=== PATIENT | male | born 1970 | race Caucasian/White ===

== ENCOUNTER 2022-12-05 11:20 | Observation (INO) ==
[2022-12-05] MEDS ORDERED: ACETAMINOPHEN 325 MG TAB PO PRN (11:38)
[2022-12-05] MEDS ORDERED: POLYETHYLENE (MIRALAX) 17 GM PACK PO PRN (11:38)
[2022-12-05] MEDS ORDERED: ALUMINUM/MAGNESIUM SUSP 30 ML UDC PO PRN (11:38)
[2022-12-05] MEDS ORDERED: MAGNESIUM HYDROXIDE SUSP 30 ML UDC PO PRN (11:38)
[2022-12-05] MEDS ORDERED: ONDANSETRON INJ 2 MG/ML 2 ML VIAL IV PRN (11:38)
--- NOTE | 2022-12-05 17:47 | History & Physical Report ---
Date of Service December 05, 2022 Assessment & Plan (1) Abdominal pain: (2) Biliary colic: (3) Hx of gastritis: Plan: This is a 52-year-old male who has significant past medical history of GERD, CKD stage III, gout and adjustment disorder who presents to [facility] as a direct admission from [facility] due to epigastric abdominal pain that started around midnight. Pt is admitted as a direct transfer from [facility] for Abd pain. Imaging at OSH (CT a/P and GB US) revealed distended GB with cholelithiasis, but no evidence for acute cholecystitis. He remained afebrile, lab work reviewed from outside facility which revealed normal LFTs and no leukocytosis. Due to persistent pain it was recommended to transfer patient due to facility not having surgeon in house for general surgery evaluation. Upon arrival currently pain is much improved after several doses of Dilaudid at outside facility. Pain currently 1 out of 10. Symptoms consistent with epigastric abdominal pain radiating around right side of abdomen to back with associated nausea and vomiting. Symptoms started abruptly. Symptoms not consistent with biliary colic. Abdominal pain Biliary colic Patient is admitted to medical Clear liquid diet today, n.p.o. after midnight Consult general surgery Images from outside facility to be uploaded in a.m. of 12/06 As needed antiemetics and pain medications Continue daily PPI as scheduled LR at 80 cc/h At this point I do not feel antibiotics are warranted repeat CBC, CMP, Lipase, Mag in a.m. Hx of Gastritis endoscopy in Aug with [facility] revealed gastritis, esophageal ulcer on PPI CKD 3a cr at OSH 1.35 monitor renal fxn avoid nephro toxic agents DVT prophylaxis: Encourage ambulation, will hold on chemical prophylaxis until valuated by general surgery Dispo: Admit to medical, determine if patient to require cholecystectomy inpatient or possibly outpatient then likely discharged home Full code PCP: Dr. Kelly Patient was seen and examined in collaboration with Dr. Stout, please see addendum A total of 80 minutes were spent with greater than 50% of that time face to face with the patient, personally reviewing all current laboratories, imaging studies, past medication reconciliation, outpatient chart review, and discussion with specialists to collaborate care for the patient with attending. Please see attending documentation for corrections and/or additions. Admission and Anticipated Discharge Date Admission Date: December 05, 2022 History of Present Illness Chief Complaint: Epigastric abd pain that started at midnight. Primary Care Provider: Dontrell Kelly MD This is a 52-year-old male who has significant past medical history of GERD, CKD stage III, gout and adjustment disorder who presents to [facility] as a direct admission from [facility] due to epigastric abdominal pain that started around midnight. Of significance he does follow with [facility] gastroenterology and underwent upper GI September 02, 2022 which revealed esophageal ulceration with reactive change, and mild chronic gastritis. He was placed on pantoprazole once daily and has been compliant with this. Patient states at midnight he developed sudden onset acute epigastric pain that radiated around the right side of his abdomen to his back. Pain was constant. It was made worse with lying down and only improved with pain medication. He states he had a similar episode exactly 1 week ago today. He denies any alcohol or NSAID use. He also denies any drug use. He does use chewing tobacco. The only thing he ate yesterday was a vegan tofu dinner made by his nephew. He is unsure what he ate approximately 1 week ago that may have brought on the symptoms. He otherwise has never had anything like this before. It was also associated with nausea and vomiting. The last episode of vomiting was around 6 AM. He denies any hematemesis, fever, chills, sweats, lightheadedness, dizziness, chest pain, shortness of breath, melena, hematochezia or diarrhea. He does complain of sore throat from vomiting. Currently pain is 1 out of 10. He was initially seen and evaluated at [facility]. He underwent a CT abdomen pelvis as well as ultrasound of gallbladder. This revealed a distended gallbladder with gallstones. Ultrasound revealed cholelithiasis without definite evidence of acute cholecystitis. EKG was reviewed from outside facility which revealed sinus rhythm, right bundle branch block noted, QTC 410 ms labs from outside facility were reviewed and LFTs were completely unremarkable. Creatinine was slightly elevated at 1.35. His troponin and lipase are unremarkable. CBC was also unremarkable. Allergies Allergy/AdvReac Type Severity Reaction Status Date / Time No Known Allergies Allergy Verified 10/20/21 09:57 Home Medications Medication Instructions Recorded Confirmed Type pantoprazole 40 mg tablet,delayed 40 mg PO DAILY 12/05/22 12/05/22 History release Past Med/Surg History Medical History Adjustment disorder CKD (chronic kidney disease) Stage III Gout Migraine Nausea and vomiting after administration of anesthetic agent Obesity Surgical History History of ankle fracture Left bimalleolar ankle fracture repair History of colonoscopy History of surgery thyroid cyst removed Hx of umbilical hernia repair Family History Other Prostate cancer Social History Smoking Status: Former smoker Tobacco Type: Smokeless Tobacco (Dip or Chew) Cigarettes Per Day: 1/2 can of chewing tobacco a day; Hx Alcohol Use: No Hx Substance Use: No Preferred 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: 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 Beliefs That Will Affect Care: None marital status: Current Living Situation: Spouse Feels Safe at Home: Yes Assistive Devices: Denture - Upper, Denture - Lower and Glasses Review of Systems Review of Systems: All systems reviewed & are unremarkable except as noted in HPI & below Physical Exam Physical Exam: Constitutional: WD/WN, male, vitals as above, NAD, sitting up in bed, pleasant, conversing easily Head: Normocephalic, Atraumatic Eyes: PERRL, conjunctivae normal, anicteric sclerae ENMT: external ear and nose normal, oropharynx normal Neck: trachea midline, no thyromegaly normal visual inspection Respiratory: normal respiratory effort, lungs clear to auscultation, no wheeze, rales, rhonchi. Normal insp/exp effort, no accessory muscle use Cardiovascular: RRR, no murmur, no edema Vessels: no JVD or carotid bruit Chest: normal inspection of chest Abdomen: Protuberant abdomen, normal bowel sounds, soft, nontender, no hepatosplenomegaly Musculoskeletal: no cyanosis or clubbing, extremities motor strength 5/5 Skin: no rashes, warm and dry normal turgor Neurologic: PERRL, EOMI, accommodation nl, no face palsy, no dysarthria CN's II-XI intact bilaterally and moves all extremities Psychiatric: A+Ox3, euthymic affect Lymphatic: no cervical or axillary lymphadenopathy : deferred Results & Data Results & Data ([facility]) Laboratory Results Lab work was reviewed from outside facility CBC unremarkable, CMP completely unremarkable except mildly elevated creatinine 1.35. Diagnostic Findings CT abdomen pelvis and ultrasound readings were reviewed This revealed hepatic steatosis, distended gallbladder but no gallbladder wall thickening or signs for concern of acute cholecystitis but positive cholelithiasis ECG Additional Comments: OSH ECG reviewed, NSR, RBBB, QTC 410ms Code Status & VTE Plan Code Status FULL CODE VTE Prophylaxis Plan VTE Prophylaxis will be ordered: Yes Supervising Physician Co-Signing Physician Notes I have seen and examined the patient and have discussed the case with the provider above. I agree with the assessment and plan as stated with the following exceptions. Patient is a 52-year-old man who presents with a second round of epigastric abdominal pain in the last week. This pain began acutely at midnight last night and he vomited excessively with significant pain until 10 AM this morning. It is sharp and radiates around to his back. There is nothing that is clearly triggering it and nothing that has alleviated it. He presented to [facility] where he received supportive care with pain meds and antiemetics. He denies any abnormal bowel movements. Work-up reveals a distended gallbladder with gallstones. This is a presumed biliary colic picture. Outpatient diagnostics as above. On physical exam he is morbidly obese and appears mildly uncomfortable. He is mentating clearly and skin is warm and dry. Cardiac exam reveals S1/S2 heard with regular rate and rhythm. Lungs are clear to auscultation bilaterally. There is no evidence of CVA tenderness. Abdomen is protuberant and nontender aside from the epigastric region and mildly in the left upper quadrant. Agree with plan to continue supportive care and assess in a.m. for consideration of laparoscopic cholecystectomy. This will be up to the surgeon who takes over tomorrow. We will keep him n.p.o. after midnight with this is a tentative plan. Other medical issues include obstructive sleep apnea and will place him on CPAP overnight. 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 He has no prior history of issues with anesthesia and no history of DVT or PE. Recommend proceeding to surgery once that is decided and continue with standard DVT prophylaxis. Girish, DO
[2022-12-05] MEDS ORDERED: SODIUM CHLORIDE 0.65% NA SOLN 45 ML (OCEAN) ONE (17:58)
[2022-12-05] MEDS ORDERED: oxyCODONE HCL IR 5 MG TAB (IMMEDIATE RELEASE) PO PRN (18:02)
--- NOTE | 2022-12-05 18:14 | Surgery Consultation ---
Date of Consultation December 05, 2022 Assessment & Plan (1) Biliary colic: Gallstones on outside imaging. Discussed laparoscopic cholecystectomy with risks of bleeding, infection, conversion to open, postop bile leak or retained stone, injury to common duct. Explained that Dr. Dacosta will take over tomorrow so timing of surgery will be deferred to him. Currently, no signs of acute cholecystitis on imaging but is requiring IV pain medications. History of Present Illness Reason for Consultation: gallstones Requesting Physician: Heidi GONZALEZ Attending Physician: Deirdre Stout DO History of Present Illness 52 yr old man direct admission from [facility] for biliary colic due to gallstones. He has been dealing with GI issues for a number of years - diverticulitis in the past, more recently reflux disease with food sticking mid chest. Started yesterday with severe 11/10 epigastric pain radiating over to right side and around back. No exacerbating factors. Now pain is a 1 /10. Did have nausea and vomiting with the pain. Does not recall eating anything unusual for him. Pain improved after dilaudid. PMH notable for GERD, CKD stage III, gout and adjustment disorder. Allergies Allergy/AdvReac Type Severity Reaction Status Date / Time No Known Allergies Allergy Verified 10/20/21 09:57 Home Medications Medication Instructions Recorded Confirmed Type pantoprazole 40 mg tablet,delayed 40 mg PO DAILY 12/05/22 12/05/22 History release Patient History Medical History Adjustment disorder CKD (chronic kidney disease) Stage III Gout Migraine Nausea and vomiting after administration of anesthetic agent Obesity Surgical History History of ankle fracture Left bimalleolar ankle fracture repair History of colonoscopy History of surgery thyroid cyst removed Hx of umbilical hernia repair Family History Other Prostate cancer Social History Smoking Status: Former smoker Tobacco Type: Smokeless Tobacco (Dip or Chew) Cigarettes Per Day: 1/2 can of chewing tobacco a day; Hx Alcohol Use: No Hx Substance Use: No 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 Beliefs That Will Affect Care: None marital status: Current Living Situation: Family Feels Safe at Home: Yes Assistive Devices: Denture - Upper, Denture - Lower and Glasses Review of Systems Review of Systems: All systems reviewed & are unremarkable except as noted in HPI & below Ear, Nose, Mouth, Throat: + hearing loss Physical Exam Constitutional: WD/WN, vitals as above Eyes: PERRL, conjunctivae normal, anicteric sclerae Respiratory: normal respiratory effort, lungs clear to auscultation Cardiovascular: RRR, no murmur, no edema Gastrointestinal (Abdomen): Inspection/Auscultation: abdomen normal to inspection and normal bowel sounds; abdomen not distended Percussion/Palpation: abdomen soft; abdomen nontender and no guarding Musculoskeletal: Extremities: extremities normal to inspection Neurologic: awake; no focal motor deficits Psychiatric: A+Ox3, euthymic affect Results & Data ([facility]) Laboratory Results Lab work was reviewed from outside facility CBC unremarkable, CMP completely unremarkable except mildly elevated creatinine 1.35. Diagnostic Findings CT abdomen pelvis and ultrasound readings were reviewed This revealed hepatic steatosis, distended gallbladder but no gallbladder wall thickening or signs for concern of acute cholecystitis but positive cho lelithiasis
[2022-12-05] MEDS: LACTATED RINGER'S 1,000 ML IV SCH (18:32)
[2022-12-05] MEDS: MoRPHine SULFATE 4 MG/ML 1 ML CARP\\VIAL IV PRN (21:27)
[2022-12-06] MEDS: LACTATED RINGER'S 1,000 ML IV SCH ×2 (05:51→21:24)
[2022-12-06 07:04] LABS: Basophils # (auto) 0.04 K/uL (0-0.2); Basophils % (auto) 0.6 %; Eosinophils # (auto) 0.28 K/uL (0-0.50); Eosinophils % (auto) 4.3 %; Hemoglobin 14.9 g/dl (14.0-18.0); Immature Granulocytes # (auto) 0.01 K/uL (0.01-0.20); Immature Granulocytes % (auto) 0.2 %; Lymphocytes # (auto) 1.04 K/uL (1.2-3.4); Lymphocytes % (auto) 15.8 %; Mean Corpuscular Hgb Conc 34.7 g/dL (32.0-36.0); Mean Corpuscular Volume 86.5 fL (80.0-100.0); Mean Platelet Volume 12.6 fL (9.4-12.4); Monocytes % (auto) 10.6 %; Neutrophils # (auto) 4.51 K/uL (1.40-6.50); Neutrophils % (auto) 68.5 %; Platelet Count 122 K/uL (130-400); RDW Coefficient of Variation 13.1 % (11.5-14.5); Red Blood Count 4.97 M/uL (4.70-6.10); White Blood Count 6.58 K/ul (4.8-10.8)
[2022-12-06] MEDS: PANTOprazole 40 MG TAB PO SCH (07:12)
[2022-12-06 07:52] LABS: Albumin Level 3.3 gm/dl (3.4-5.0); Calcium 8.2 mg/dl (8.5-10.1); Magnesium 1.8 mg/dl (1.7-2.4); Potassium 3.9 mmol/L (3.5-5.1)
[2022-12-06 07:58] LABS: Albumin Globulin Ratio 1.6 (0.9-2); BUN Creatinine Ratio 9.5 (10-20); Creatinine Clr Calc Pharmacy 83.3 ml/min; Est GFR (African American) 74.5 ml/min; Est GFR (Non-African American) 64.2 ml/min; Globulin 2.1 gm/dl (2.5-4.0); Total Protein 5.4 gm/dl (6.0-8.3)
--- NOTE | 2022-12-06 10:30 | Surgery Progress Note ---
Date of Service December 06, 2022 Assessment & Plan (1) Biliary colic: Plan: Gallstones on outside imaging. Discussed laparoscopic cholecystectomy with risks of bleeding, infection, conversion to open, postop bile leak or retained stone, injury to common duct. Explained that Dr. Dacosta will take over tomorrow so timing of surgery will be deferred to him. Currently, no signs of acute cholecystitis on imaging but is requiring IV pain medications. 12/06/2022 10:[address] Dacosta base on pt's H/P, labs and imaging study, I recommend to do laparoscopic cholecystectomy, possible open or cholangiogram, D/W benefits, risks and alternatives of the surgery, the risks - infection, bleeding, injury other organs, incisional hernia, may need ERCP, pt understood, he agreed with surgery, he signed informed consent, I answered all questions, continue treatment, Admission and Anticipated Discharge Date Admission Date: December 05, 2022 Supervising Physician Co-Signing Physician Notes I have seen and examined the patient and have discussed the case with the provider above. I agree with the assessment and plan as stated with the following exceptions. Patient is a 52-year-old man who presents with a second round of epigastric abdominal pain in the last week. This pain began acutely at midnight last night and he vomited excessively with significant pain until 10 AM this morning. It is sharp and radiates around to his back. There is nothing that is clearly triggering it and nothing that has alleviated it. He presented to [facility] where he received supportive care with pain meds and antiemetics. He denies any abnormal bowel movements. Work-up reveals a distended gallbladder with gallstones. This is a presumed biliary colic picture. Outpatient diagnostics as above. On physical exam he is morbidly obese and appears mildly uncomfortable. He is mentating clearly and skin is warm and dry. Cardiac exam reveals S1/S2 heard with regular rate and rhythm. Lungs are clear to auscultation bilaterally. There is no evidence of CVA tenderness. Abdomen is protuberant and nontender aside from the epigastric region and mildly in the left upper quadrant. Agree with plan to continue supportive care and assess in a.m. for consideration of laparoscopic cholecystectomy. This will be up to the surgeon who takes over tomorrow. We will keep him n.p.o. after midnight with this is a tentative plan. Other medical issues include obstructive sleep apnea and will place him on CPAP overnight. 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 He has no prior history of issues with anesthesia and no history of DVT or PE. Recommend proceeding to surgery once that is decided and continue with standard DVT prophylaxis. [place], DO Subjective F/U biliary colic and gallstone, pt is doing better, less abdominal pain, no nausea, no vomiting, no fever, I reviewed pt's H/P, labs with pt. Review of Systems Ear, Nose, Mouth, Throat: + hearing loss Physical Exam Constitutional: WD/WN, vitals as above Eyes: PERRL, conjunctivae normal, anicteric sclerae Neck: trachea midline, no thyromegaly Respiratory: normal respiratory effort, lungs clear to auscultation Cardiovascular: RRR, no murmur, no edema Gastrointestinal (Abdomen): mild tenderness at RUQ, no rebound pain , no distend, BS +, Musculoskeletal: no cyanosis or clubbing, extremities motor strength 5/5 Neurologic: patellar DTR's 2+ bilat, sensation intact Psychiatric: A+Ox3, euthymic affect Results & Data ([facility]) Vital Signs (Past 12 Hours) Vital Signs Temp Pulse Resp BP Pulse Ox O2 Del Method O2 Flow Rate 12/06/22 07:38 36.9 C 81 18 125/74 95 Room Air 12/05/22 22:50 36.5 C 70 20 127/80 96 Nasal Cannula 2 Laboratory Results Abnormal lab results 12/06/22 12/06/22 Range/Units 06:29 06:29 Plt Count 122 L (130-400) K/uL MPV 12.6 H (9.4-12.4) fL Lymph # (Auto) 1.04 L (1.2-3.4) K/uL Edwards # (Auto) 0.70 H (0.11-0.59) K/uL BUN/Creatinine Ratio 9.5 L (10-20) Calcium 8.2 L (8.5-10.1) mg/dl Total Protein 5.4 L (6.0-8.3) gm/dl Albumin 3.3 L (3.4-5.0) gm/dl Globulin 2.1 L (2.5-4.0) gm/dl Diagnostic Findings Gallstones on outside imaging.
[2022-12-06] MEDS: ceFAZolin 1000MG 1,000 MG/7.5 ML SYR IV SCH (11:33)
--- NOTE | 2022-12-06 14:38 | Hospitalist Progress Note ---
Date of Service December 06, 2022 Assessment & Plan (1) Abdominal pain: (2) Biliary colic: (3) Hx of gastritis: Plan: Patient is a 52 yr male with H/O GERD, CKD stage III, gout and adjustment disorder who presents to [facility] as a direct admission from [facility] due to epigastric abdominal pain that started around midnight. Biliary colic Outpatient CT ABD/Pel and GB US revealed distended GB with cholelithiasis, but no evidence for acute cholecystitis. NPO for now Appreciate surgery Input Planned for Laparoscopic Cholecystectomy today pain control Continue IV fluids H/O Gastritis Last Endoscopy in Aug with [facility] revealed gastritis, esophageal ulcer Continue PPI CKD III Cr 1.2 today monitor renal function Avoid nephro toxic agents DVT Px: SCDs for now Encourage ambulation Code Status: Full code Admission and Anticipated Discharge Date Admission Date: December 05, 2022 Subjective Patient is seen and examined at bedside Abdominal pain resolved Denies any chest pain, shortness of breath, dizziness, nausea No other complaints Planned for cholecystectomy today Review of Systems Review of Systems: All systems reviewed & are unremarkable except as noted in Subjective Physical Exam Physical Exam: Physical Exam: Vitals signs as noted above General Appearance:Obese, no apparent distress Head: normocephalic, Atraumatic Eyes: normal inspection, EOMI Neck: supple, Trachea midline Respiratory/Chest: Normal breath sounds, CTA, No accessory muscle use Cardiovascular: S1, S2, No murmur Abdomen/GI:Soft, Non tender, Bowel sounds present Extremities/Musculoskeletal:normal inspection, no edema Neurologic/Psych:AAOX3, grossly no focal neurological deficits Skin: normal color, warm Results & Data Results & Data ([facility]) Vital Signs (Past 12 Hours) Vital Signs Temp Pulse Resp BP Pulse Ox O2 Del Method 12/06/22 07:38 36.9 C 81 18 125/74 95 Room Air Laboratory Results Short CBC 12/06/22 Range/Units 06:29 WBC 6.58 (4.8-10.8) K/ul Hgb 14.9 (14.0-18.0) g/dl Hct 43.0 (42.0-52.0) % Plt Count 122 L (130-400) K/uL BMP 12/06/22 06:29 Sodium 136 Potassium 3.9 Chloride 104 Carbon Dioxide 28 BUN 12 Creatinine 1.26 Glucose 95 Calcium 8.2 L Liver Function 12/06/22 Range/Units 06:29 Total Bilirubin 1.0 (0.2-1.0) mg/dl AST 16 (13-39) U/L ALT 18 (7-52) U/L Alkaline Phosphatase 68 (34-104) U/L Albumin 3.3 L (3.4-5.0) gm/dl
[2022-12-06] MEDS ORDERED: fentaNYL citrate PF 100 MCG/2 ML VIAL ONE ×2 (16:57→19:18)
[2022-12-06] MEDS ORDERED: ONDANSETRON INJ 2 MG/ML 2 ML VIAL ONE ×2 (16:57→18:29)
[2022-12-06] MEDS ORDERED: MIDAZOLAM HCL 1 MG/ML 2ML VIAL ONE (16:57)
[2022-12-06] MEDS ORDERED: LARYING-O-JET KIT (LTA) ONE (16:57)
[2022-12-06] MEDS ORDERED: ROCURONIUM BROMIDE 10 MG/ML 5 ML VIAL IV ONE (16:57)
[2022-12-06] MEDS ORDERED: PROPOFOL IV EMULSION 10 MG/ML 20 ML VIAL IV ONE (16:57)
[2022-12-06] MEDS ORDERED: LIDOCAINE 2% MPF LOCAL 5 ML VIAL INFIL ONE (16:57)
[2022-12-06] MEDS ORDERED: NEOSTIGMINE METHYLSULFATE 1 MG/ML 10ML VIAL ONE ×3 (16:57→20:05)
[2022-12-06] MEDS ORDERED: DEXAMETHASONE SOD INJ 4 MG/ML VIAL ONE (16:57)
[2022-12-06] MEDS ORDERED: GLYCOPYRROLATE 0.2 MG/ML VIAL ONE ×3 (16:57→20:05)
--- NOTE | 2022-12-06 17:06 | History & Physical Bridge Note ---
Date of Service December 06, 2022 History & Physical Bridge Note I have examined the patient, reviewed the History & Physical and in the interval since the performance of the History & Physical I have noted the following changes of clinical significance: no changes noted Supervising Physician Co-Signing Physician Notes I have seen and examined the patient and have discussed the case with the provider above. I agree with the assessment and plan as stated with the following exceptions. Patient is a 52-year-old man who presents with a second round of epigastric abdominal pain in the last week. This pain began acutely at midnight last night and he vomited excessively with significant pain until 10 AM this morning. It is sharp and radiates around to his back. There is nothing that is clearly triggering it and nothing that has alleviated it. He presented to [facility] where he received supportive care with pain meds and antiemetics. He denies any abnormal bowel movements. Work-up reveals a distended gallbladder with gallstones. This is a presumed biliary colic picture. Outpatient diagnostics as above. On physical exam he is morbidly obese and appears mildly uncomfortable. He is mentating clearly and skin is warm and dry. Cardiac exam reveals S1/S2 heard with regular rate and rhythm. Lungs are clear to auscultation bilaterally. There is no evidence of CVA tenderness. Abdomen is protuberant and nontender aside from the epigastric region and mildly in the left upper quadrant. Agree with plan to continue supportive care and assess in a.m. for consideration of laparoscopic cholecystectomy. This will be up to the surgeon who takes over tomorrow. We will keep him n.p.o. after midnight with this is a tentative plan. Other medical issues include obstructive sleep apnea and will place him on CPAP overnight. 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 He has no prior history of issues with anesthesia and no history of DVT or PE. Recommend proceeding to surgery once that is decided and continue with standard DVT prophylaxis. DO Girish
[2022-12-06] MEDS ORDERED: BUPIVACAINE 0.5 % 5 MG/1 ML MPF 30ML VIAL ONE (17:21)
[2022-12-06] MEDS ORDERED: BACITRACIN OINT 15 GM TUBE ONE (17:21)
[2022-12-06] MEDS ORDERED: LIDOCAINE 1% LOCAL 20 ML VIAL ONE (17:21)
[2022-12-06] MEDS ORDERED: ONDANSETRON INJ 2 MG/ML 2 ML VIAL IV PRN (17:24)
[2022-12-06] MEDS ORDERED: HYDROmorphone INJ 2 MG/ML SYR/VIAL IV PRN (17:24)
[2022-12-06] MEDS ORDERED: ePHEDrine sulfate 50 MG/ML AMP IV PRN (17:24)
[2022-12-06] MEDS ORDERED: ATROPINE SULFATE 0.1 MG/ML 10ML SYR IV PRN (17:24)
--- NOTE | 2022-12-06 17:25 | Anesthesiology Consultation ---
Date of Service December 06, 2022 Assessment & Plan ASA ASA2 Proposed Anesthesia Anesthesia Type: General Risk / Benefits Reviewed With: PT / POA / Parent / Guardian, Accepts Plan and Informed Consent Obtained History Surgery Operation Date: 12/06/22 13:10 Proposed Procedures p Laparoscopic Cholecystectomy - Nuzhat Dacosta MD Height/Weight Height: 5 ft 9 in Weight: 113.5 kg Allergies Allergy/AdvReac Type Severity Reaction Status Date / Time No Known Allergies Allergy Verified 10/20/21 09:57 Medications Home Medications Medication Instructions Recorded Confirmed Last Taken pantoprazole 40 mg tablet,delayed 40 mg PO DAILY 12/05/22 12/05/22 Unknown release Active Medications Generic Name Dose Route Start Last Admin Trade Name Freq PRN Reason Stop Dose Admin Lactated Ringer's 1,000 mls @ 80 mls/hr 12/05/22 18:15 12/06/22 16:53 Lr IV 01/04/23 18:14 0 mls/hr .[id number] SHANELL Infusion Cefazolin Sodium 1,000 mg in 7.5 mls @ 2.5 mls/min 12/06/22 10:30 12/06/22 11:33 Ancef 1000mg IV 12/16/22 10:29 2.5 mls/min Q8H SHANELL Administration Morphine Sulfate 4 mg 12/05/22 18:02 12/05/22 21:27 Morphine Sulfate 4 Mg/Ml 1 Ml Carp\Vial IV 12/19/22 18:01 4 mg Q4H PRN Administration Pain (6,7,8,9,10) Pantoprazole Sodium 40 mg 12/06/22 09:00 12/06/22 07:12 Pantoprazole 40 Mg Tab PO 01/05/23 08:59 Not Given DAILY SHANELL NPO Date Last Intake of Fluids: 12/05/22 Time Last Intake of Fluids: 23:30 Date Last Intake of Solids: 12/06/22 Time Last Intake of Solids: 23:30 Past Medical History Medical History Adjustment disorder CKD (chronic kidney disease) Stage III Gout Migraine Nausea and vomiting after administration of anesthetic agent Obesity Exercise / Class Metabolic Activity II 4-5 Yardwork/Stairs/Walk up hill Past Family History Family History Other Prostate cancer Past Surgical History Surgical History History of ankle fracture Left bimalleolar ankle fracture repair History of colonoscopy History of surgery thyroid cyst removed Hx of umbilical hernia repair Past Anesthesia History No Hx of Anesthesia Complications and No Family Hx of Anesthesia Complications History of PONV No Hx of PONV and No Hx of Motion Sickness Social History Smoking Status: Former smoker tobacco type: cigarettes Smoking cigarettes per day: 1/2 can of chewing tobacco a day Hx Alcohol Use: No Hx Substance Use: No substance use type: does not use Review of Systems denies fever/cough/ colds/ chest pain/ SOB/ JON denies JON Physical Exam Vital Signs Last Vital Signs Temp 37.4 C 12/06/22 17:04 Pulse 70 12/06/22 17:04 Resp 18 12/06/22 17:04 BP 133/79 12/06/22 17:04 Pulse Ox 95 12/06/22 17:04 O2 Del Method 12/06/22 17:04 O2 Flow Rate 2 12/05/22 22:50 ENMT Mouth: + edentulous; no TMJ abnormality and no dentition abnormality Thyromental Distance: > or= 3.5 Finger Breadths Mallampati Class: II Neck neck extension not limited Respiratory normal respiratory effort; no respiratory distress Auscultation: lungs clear to auscultation bilaterally Cardiovascular Rate/Rhythm: regular rate and regular rhythm Neurologic moves all extremities Psychiatric Orientation: alert and oriented x 3 Testing Laboratory Results 12/06/22 06:29 12/06/22 06:29
[2022-12-06] MEDS ORDERED: ceFAZolin 330 MG/ML 1 GM VIAL ONE (18:13)
[2022-12-06] MEDS ORDERED: SODIUM CHLORIDE 0.9% PF INJ 10 ML VIAL ONE (18:13)
[2022-12-06] MEDS ORDERED: ceFAZolin 2000MG 2,000 MG/15 ML SYR IV ONE (18:19)
[2022-12-06] MEDS ORDERED: SUGAMMADEX SODIUM 200 MG/2 ML VIAL IV ONE (19:11)
--- NOTE | 2022-12-06 20:13 | Post Operative Brief Note ---
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
[2022-12-06] MEDS: fentaNYL citrate PF 100 MCG/2 ML VIAL IV PRN ×4 (20:30→20:45)
--- NOTE | 2022-12-06 20:56 | Anesthesiology Progress Note ---
Date of Service December 06, 2022 Anesthesia Post Procedure Vital Signs Vital Signs: Temp Pulse Pulse Pulse Resp BP Pulse Ox 12/06/22 20:50 78 15 123/84 94 12/06/22 20:40 90 16 137/90 93 12/06/22 20:30 95 H 17 142/85 H 90 12/06/22 20:24 37.3 C 96 H 21 130/88 96 12/06/22 17:04 37.4 C 70 18 133/79 95 12/06/22 16:14 36.8 C 69 18 118/77 92 12/06/22 07:38 36.9 C 81 18 125/74 95 12/05/22 22:50 36.5 C 70 20 127/80 96 12/05/22 20:58 85 24 94 O2 Del Method O2 Flow Rate 12/06/22 20:50 Nasal Cannula 4 12/06/22 20:40 Nasal Cannula 4 12/06/22 20:30 Nasal Cannula 4 12/06/22 20:24 Oxymask 6 12/06/22 17:04 Room Air 12/06/22 16:14 Room Air 12/06/22 07:38 Room Air 12/05/22 22:50 Nasal Cannula 2 12/05/22 20:58 2 Pain Intensity Abdomen: Pain Intensity: 5 Transfer of Care Handoff Completed per policy Notes Mental Status: alert / awake / arousable and participated in evaluation Patient Amnestic to Procedure: Yes Nausea / Vomiting: adequately controlled Pain: adequately controlled Airway Patency, RR, SpO2: stable & adequate BP & HR: stable & adequate Hydration State: stable & adequate Anesthetic Complications: no major complications apparent and Pt Satisfied with anesthetic care
[2022-12-06] MEDS: MoRPHine SULFATE 4 MG/ML 1 ML CARP\\VIAL IV PRN (21:21)
[2022-12-07] MEDS: LACTATED RINGER'S 1,000 ML IV SCH (05:17)
[2022-12-07] MEDS: MoRPHine SULFATE 4 MG/ML 1 ML CARP\\VIAL IV PRN (05:18)
[2022-12-07] MEDS: ceFAZolin 1000MG 1,000 MG/7.5 ML SYR IV SCH ×2 (07:02→07:03)
[2022-12-07 07:23] LABS: Hematocrit (blood only) 42.1 % (42.0-52.0); Hemoglobin 14.8 g/dl (14.0-18.0); Mean Corpuscular Hemoglobin 30.2 pg (25.0-34.0); Mean Corpuscular Hgb Conc 35.2 g/dL (32.0-36.0); Mean Corpuscular Volume 85.9 fL (80.0-100.0); Mean Platelet Volume 12.5 fL (9.4-12.4); Platelet Count 128 K/uL (130-400); RDW Standard Deviation 40.5 fL (36.4-46.3); White Blood Count 6.05 K/ul (4.8-10.8)
[2022-12-07 07:56] LABS: Albumin Globulin Ratio 1.6 (0.9-2); Albumin Level 3.6 gm/dl (3.4-5.0); BUN Creatinine Ratio 12.9 (10-20); Bilirubin,Total 0.7 mg/dl (0.2-1.0); Calcium 8.6 mg/dl (8.5-10.1); Creatinine Clr Calc Pharmacy 90.4 ml/min; Est GFR (African American) 82.3 ml/min; Globulin 2.3 gm/dl (2.5-4.0); Potassium 4.7 mmol/L (3.5-5.1); Total Protein 5.9 gm/dl (6.0-8.3)
--- NOTE | 2022-12-07 07:57 | Operative Report (OR) ---
DATE OF PROCEDURE: 12/06/2022. PREOPERATIVE DIAGNOSIS: Cholelithiasis, biliary colic. POSTOPERATIVE DIAGNOSIS: Acute cholecystitis and cholelithiasis. OPERATION: Laparoscopic cholecystectomy. SKY drainage x1. SURGEON: Nuzhat Dacosta MD. ANESTHESIA: General. ESTIMATED BLOOD LOSS: About 30 mL. FINDINGS: Significant inflammation on the gallbladder wall, gallbladder wall has significant thicken ing, edema, and inflammation, acute cholecystitis. COMPLICATIONS: None. INDICATIONS FOR THE PROCEDURE: This is a 52-year-old gentleman, who was admitted to the hospital for acute gallbladder attack and the patient had a diagnosis of gallstone at an outside hospital and the patient was transferred to this hospital and I recommended to do laparoscopic cholecystectomy, possi ble open, possible cholangiogram. I did talk to the patient about the benefits, risks, and alternate procedure. I indicated the risks may include, but not limited to, such as bleeding, infection, inju ry to other organs, bile leak, injury to common bile duct, may need ERCP, incisional hernia, myocardi al infarction, DVT, stroke, even . The patient understands. He signed informed consent and I a nswered all questions. DETAILS OF PROCEDURE: After we identified the patient and verified the procedure, we brought the pat ient to the OR, put the patient in the supine position on the OR table. The patient received SCD on bilateral legs to prevent DVT. Also, the patient received 2 grams of Ancef IV for prophylactic antib iotic. The patient received general anesthesia without difficulty. The abdomen was prepped and drap ed in routine sterile fashion. After timeout, I injected the local anesthesia by using 1% lidocaine mixed with 0.5% Marcaine just above the umbilicus. Then I made a small incision just above the umbili cus, opened fascia, opened peritoneum. Under direct vision, put a Damaris trocar in, connected to CO2 to create pneumoperitoneum, flow rate at 6 liters per minute, pressure not more than 14 mmHg. Once we got a nice pneumoperitoneum, we put a camera in, looked around the abdomen, it showed normal finding on the liver; however, the gallbladder showed a significant inflammation with edema of gallbl adder wall, significant distention of the gallbladder, confirmed diagnosis of acute cholecystitis. T hen, we put another two 5 mm trocars on the right upper quadrant, one was a 12 trocar on the epigastr ic area. Once all trocars in, I used the larger needle to decompress the gallbladder 1st. There was some inflammation, and fluid came out. Then, we used a grasper to hold the base of gallbladder, put in the direction to the diaphragm, another grasper to hold the pouch of gallbladder, put it the late ral to explore the triangle of Calot. The cystic duct was identified and mobilized. I put two 10 mm metal clips on the proximal cystic duct, one on the distal cystic duct, then used a scissor for jacobo section of cystic duct. We obtained no bile leak. The cystic artery was identified and mobilized. I put two 5 mm metal clips on the proximal cystic artery, one on the distal cystic artery, then used a scissor for transection of cystic artery; rechecked, no active bleeding. Then, we used a Bovie to take down gallbladder from the liver bed; however, due to significant inflammation on the gallbladder bed, we used FloSeal on the liver bed and rechecked, no active bleeding. Then, we removed gallbladd er through the catch bag. Again, we reinserted the Damaris trocar and connected to CO2 to create pneu moperitoneum again and no active bleeding from the liver bed. However, based on significant inflamma tion on the gallbladder, I decided to put one 10 mm SKY drainage through the 5 mm trocar. Then, I use d 2-0 silk and fixed the SKY on the skin. The SKY drainage was located just below the liver. Then, we removed all trocars under direct vision. No active bleeding from the trocar site. Pneumoperitoneum was released. Then I closed the umbilical incision and fascial layer by using 0 Vicryl [id number] ht x2, closed subcutaneous layer by using 2-0 Vicryl interruptedly, closed skin by using 4-0 Vicryl c ontinuous running, closed the epigastric incision and the fascial layer by using 0 Vicryl figure-of-e ight x2, closed subcutaneous layer by using 2-0 Vicryl interruptedly, closed skin by using 4-0 Vicryl interruptedly, closed another two 5 mm trocar sites of skin only by using 4-0 Vicryl. Then, we put the dressing on. The patient tolerated the procedure well. All instrument, needle, and sponge count s were correct x2 at the end of the case. The patient was transferred to recovery room in stable con dition. The specimen was sent to pathology. After the procedure, I did talk to the patient about th e OR finding and the procedure we did. The patient understands. Job ID: [id number]
[2022-12-07] MEDS: PANTOprazole 40 MG TAB PO SCH (08:44)
--- NOTE | 2022-12-07 09:44 | Surgery Progress Note ---
Date of Service December 07, 2022 Assessment & Plan (1) Biliary colic: Plan: POD # 1 s/p lap mercedes -avss - postop pain controlled - kaylynn drain with bloody output, nonbilious - adequate urine output Plan: Okay from surgical standpoint for discharge, discharge instructions reviewed Home with kaylynn drain, drain teaching prior to discharge follow-up surgery office in 1 weeks Rx for Percocet prn pain and 7 days of PO Cipro and Flagyl Discussed with Dr. Dacosta who agrees with above. Admission and Anticipated Discharge Date Admission Date: December 05, 2022 Subjective feeling fine postop pain controlled tolerated clears no n,v passing gas urinating without difficulty no chest pain or shortness of breath Physical Exam Constitutional: WD/WN, vitals as above + obese and cooperative; no acute distress and not ill appearing Neck: normal visual inspection and trachea midline Gastrointestinal (Abdomen): Inspection/Auscultation: abdomen normal to inspection, + abdominal surgical incision (covered with dry dressings), + abdominal surgical drain present (bloody output, about 20 cc) and + hypoactive bowel sounds; abdomen not distended and + abnormal bowel sounds Percussion/Palpation: abdomen soft; abdomen nontender, no guarding and abdomen not rigid Skin: no rashes, warm and dry Psychiatric: Orientation: alert and oriented x 3 Results & Data ([facility]) Vital Signs (Past 12 Hours) Vital Signs Temp Pulse Resp BP Pulse Ox O2 Del Method O2 Flow Rate 12/07/22 07:20 36.6 C 67 14 122/73 94 Room Air 12/06/22 23:56 36.4 C L 84 20 146/82 H 92 Room Air 12/06/22 22:54 36.8 C 83 20 122/78 94 Nasal Cannula 4 12/06/22 22:10 36.6 C 82 20 149/75 H 95 Nasal Cannula 4 Laboratory Results 12/07/22 12/07/22 Range/Units 07:00 07:00 WBC 6.05 (4.8-10.8) K/ul RBC 4.90 (4.70-6.10) M/uL Hgb 14.8 (14.0-18.0) g/dl Hct 42.1 (42.0-52.0) % MCV 85.9 (80.0-100.0) fL MCH 30.2 (25.0-34.0) pg MCHC 35.2 (32.0-36.0) g/dL RDW Std Deviation 40.5 (36.4-46.3) fL RDW Coeff of Ender 13.0 (11.5-14.5) % Plt Count 128 L (130-400) K/uL MPV 12.5 H (9.4-12.4) fL Sodium 137 (136-145) mmol/L Potassium 4.7 D (3.5-5.1) mmol/L Chloride 104 (98-107) mmol/L Carbon Dioxide 27 (21-32) mmol/L Anion Gap 6 (3-11) BUN 15 (6-23) mg/dl Creatinine 1.16 (0.6-1.4) mg/dl Est Cr Clr Drug Dosing 90.4 ml/min Est GFR ( Amer) 82.3 ml/min Est GFR (Non-Af Amer) 71.0 ml/min BUN/Creatinine Ratio 12.9 (10-20) Glucose 148 H (70-99(Fasting)) mg/dl Calcium 8.6 (8.5-10.1) mg/dl Magnesium 2.0 (1.7-2.4) mg/dl Total Bilirubin 0.7 (0.2-1.0) mg/dl AST 23 (13-39) U/L ALT 21 (7-52) U/L Alkaline Phosphatase 63 (34-104) U/L Total Protein 5.9 L (6.0-8.3) gm/dl Albumin 3.6 (3.4-5.0) gm/dl Globulin 2.3 L (2.5-4.0) gm/dl Albumin/Globulin Ratio 1.6 (0.9-2)
--- NOTE | 2022-12-07 16:35 | Discharge Summary ---
Date of Service December 07, 2022 Admission HPI Per Admitting Provider This is a 52-year-old male who has significant past medical history of GERD, CKD stage III, gout and adjustment disorder who presents to [facility] as a direct admission from [facility] due to epigastric abdominal pain that started around midnight. Of significance he does follow with [facility] gastroenterology and underwent upper GI September 02, 2022 which revealed esophageal ulceration with reactive change, and mild chronic gastritis. He was placed on pantoprazole once daily and has been compliant with this. Patient states at midnight he developed sudden onset acute epigastric pain that radiated around the right side of his abdomen to his back. Pain was constant. It was made worse with lying down and only improved with pain medication. He states he had a similar episode exactly 1 week ago today. He denies any alcohol or NSAID use. He also denies any drug use. He does use chewing tobacco. The only thing he ate yesterday was a vegan tofu dinner made by his nephew. He is unsure what he ate approximately 1 week ago that may have brought on the symptoms. He otherwise has never had anything like this before. It was also associated with nausea and vomiting. The last episode of vomiting was around 6 AM. He denies any hematemesis, fever, chills, sweats, lightheadedness, dizziness, chest pain, shortness of breath, melena, hematochezia or diarrhea. He does complain of sore throat from vomiting. Currently pain is 1 out of 10. He was initially seen and evaluated at [facility]. He underwent a CT abdomen pelvis as well as ultrasound of gallbladder. This revealed a distended gallbladder with gallstones. Ultrasound revealed cholelithiasis without definite evidence of acute cholecystitis. EKG was reviewed from outside facility which revealed sinus rhythm, right bundle branch block noted, QTC 410 ms labs from outside facility were reviewed and LFTs were completely unremarkable. Creatinine was slightly elevated at 1.35. His troponin and lipase are unremarkable. CBC was also unremarkable. Admission Exam Per Admitting Provider Constitutional: WD/WN, male, vitals as above, NAD, sitting up in bed, pleasant, conversing easily Head: Normocephalic, Atraumatic Eyes: PERRL, conjunctivae normal, anicteric sclerae ENMT: external ear and nose normal, oropharynx normal Neck: trachea midline, no thyromegaly normal visual inspection Respiratory: normal respiratory effort, lungs clear to auscultation, no wheeze, rales, rhonchi. Normal insp/exp effort, no accessory muscle use Cardiovascular: RRR, no murmur, no edema Vessels: no JVD or carotid bruit Chest: normal inspection of chest Abdomen: Protuberant abdomen, normal bowel sounds, soft, nontender, no hepatosplenomegaly Musculoskeletal: no cyanosis or clubbing, extremities motor strength 5/5 Skin: no rashes, warm and dry normal turgor Neurologic: PERRL, EOMI, accommodation nl, no face palsy, no dysarthria CN's II-XI intact bilaterally and moves all extremities Psychiatric: A+Ox3, euthymic affect Lymphatic: no cervical or axillary lymphadenopathy : deferred Principal Diagnosis Biliary colic, acute cholecystitis, s/p laparoscopic cholecystectomy Discharge Exam Constitutional WD/WN, vitals as above Respiratory normal respiratory effort, lungs clear to auscultation Cardiovascular Rate/Rhythm: regular rate and regular rhythm Vessels: normal peripheral pulses Extremities: no edema Gastrointestinal (Abdomen) Inspection/Auscultation: + abdomen distended (semi firm) Percussion/Palpation: abdomen nontender and no hepatosplenomegaly Laparoscopic surgical dressings CDI, SKY in place draining serosanguineous drainage Skin no rashes, warm and dry Neurologic no focal motor deficits Psychiatric A+Ox3, euthymic affect Discharge Data Allergies Allergy/AdvReac Type Severity Reaction Status Date / Time No Known Allergies Allergy Verified 10/20/21 09:57 Consultations 12/05/22 11:38 Consult General Surgery Routine Procedures Performed Operation Date: 12/06/22 13:10 Actual Procedures p Laparoscopic Cholecystectomy(Not Applicable) - Nuzhat Dacosta MD Ordered Studies Laboratory Results WBC 6.05 K/ul (4.8-10.8) 12/07/22 07:00 RBC 4.90 M/uL (4.70-6.10) 12/07/22 07:00 Hgb 14.8 g/dl (14.0-18.0) 12/07/22 07:00 Hct 42.1 % (42.0-52.0) 12/07/22 07:00 MCV 85.9 fL (80.0-100.0) 12/07/22 07:00 MCH 30.2 pg (25.0-34.0) 12/07/22 07:00 MCHC 35.2 g/dL (32.0-36.0) 12/07/22 07:00 RDW Std Deviation 40.5 fL (36.4-46.3) 12/07/22 07:00 RDW Coeff of Ender 13.0 % (11.5-14.5) 12/07/22 07:00 Plt Count 128 K/uL (130-400) L 12/07/22 07:00 MPV 12.5 fL (9.4-12.4) H 12/07/22 07:00 Immature Gran % (Auto) 0.2 % 12/06/22 06:29 Neut % (Auto) 68.5 % 12/06/22 06:29 Lymph % (Auto) 15.8 % 12/06/22 06:29 Edmonson % (Auto) 10.6 % 12/06/22 06:29 Eos % (Auto) 4.3 % 12/06/22 06:29 Baso % (Auto) 0.6 % 12/06/22 06:29 Neut # (Auto) 4.51 K/uL (1.40-6.50) 12/06/22 06:29 Lymph # (Auto) 1.04 K/uL (1.2-3.4) L 12/06/22 06:29 Edmonson # (Auto) 0.70 K/uL (0.11-0.59) H 12/06/22 06:29 Eos # (Auto) 0.28 K/uL (0-0.50) 12/06/22 06:29 Baso # (Auto) 0.04 K/uL (0-0.2) 12/06/22 06:29 Immature Gran # (Auto) 0.01 K/uL (0.01-0.20) 12/06/22 06:29 Sodium 137 mmol/L (136-145) 12/07/22 07:00 Potassium 4.7 mmol/L (3.5-5.1) D 12/07/22 07:00 Chloride 104 mmol/L (98-107) 12/07/22 07:00 Carbon Dioxide 27 mmol/L (21-32) 12/07/22 07:00 Anion Gap 6 (3-11) 12/07/22 07:00 BUN 15 mg/dl (6-23) 12/07/22 07:00 Creatinine 1.16 mg/dl (0.6-1.4) 12/07/22 07:00 Est Cr Clr Drug Dosing 90.4 ml/min 12/07/22 07:00 Est GFR ( Amer) 82.3 ml/min 12/07/22 07:00 Est GFR (Non-Af Amer) 71.0 ml/min 12/07/22 07:00 BUN/Creatinine Ratio 12.9 (10-20) 12/07/22 07:00 Glucose 148 mg/dl (70-99(Fasting)) H 12/07/22 07:00 Calcium 8.6 mg/dl (8.5-10.1) 12/07/22 07:00 Magnesium 2.0 mg/dl (1.7-2.4) 12/07/22 07:00 Total Bilirubin 0.7 mg/dl (0.2-1.0) 12/07/22 07:00 AST 23 U/L (13-39) 12/07/22 07:00 ALT 21 U/L (7-52) 12/07/22 07:00 Alkaline Phosphatase 63 U/L (34-104) 12/07/22 07:00 Total Protein 5.9 gm/dl (6.0-8.3) L 12/07/22 07:00 Albumin 3.6 gm/dl (3.4-5.0) 12/07/22 07:00 Globulin 2.3 gm/dl (2.5-4.0) L 12/07/22 07:00 Albumin/Globulin Ratio 1.6 (0.9-2) 12/07/22 07:00 Lipase 24 U/L (11-82) 12/06/22 06:29 SARS-CoV-2, RNA, NAAT NEGATIVE (NEGATIVE) 12/05/22 18:40 Hospital Course (1) Abdominal pain: (2) Biliary colic: (3) Hx of gastritis: Patient is a 52 yr male with H/O GERD, CKD stage III, gout and adjustment disorder who presents to [facility] as a direct admission from [facility] due to epigastric abdominal pain that started around midnight. CT ABD/pelvis showed distended gallbladder with cholelithiasis, no evidence of acute cholecystitis. S/p laparoscopic cholecystectomy on 12/06/2022. Found to have evidence of acute cholecystitis intraoperatively. Patient tolerating regular diet. SKY to remain in place at discharge. Will be discharged on 7-day course of Cipro and Flagyl. Follow-up with general surgery H/O Gastritis Last Endoscopy in Aug with [facility] revealed gastritis, esophageal ulcer Continue PPI CKD III Renal functions remained stable during admission Total Time Total Time Spent Total Time Spent (In Minutes): 35 Discharge Plan Discharge Items Patient Disposition: Home - Self-Care Reason For Visit: Abdmonial Pain Discharge Diagnosis: Gallstones, Infected Gallbladder, Gallbladder Removal Surgery Activity: Per Instructions section Non-emergency contact: Primary Care Provider and Surgeon Call non-emergency contact if: you have any medication questions, your symptoms worsen, your pain is not controlled and you have a fever Follow-up/Referrals: Nuzhat Dacosta MD [Physician] - 12/15/22 11:15 am (Follow-up in 1 week ) Missy Yoon CRNP [Primary Care Provider] - 12/14/22 1:00 pm Diet: Regular Addtl Attending Provider Instructions: You came to the hospital for evaluation of abdominal pain and imaging showed that you had gallstones. You had gallbladder removal surgery on 12/06. During the surgery, your gallbladder was also found to be infected. He will be discharged on antibiotics which you will take for the next 1 week. Take ciprofloxacin 500 mg twice daily and metronidazole 500 mg 3 times daily. Follow-up with your PCP within 1 week. It was a pleasure taking care of you. If you need to reach a member of the [facility] Hospitalist team at [facility], please call [phone]. SURJIT Charles Addtl [employer] Provider Instructions: Post-Surgical ~Discharge Instructions Activity Recommendations: - lifting limitation: (20 pounds for 2 weeks), - exercise/sex/sports limit: (nonstrenuous for 2 weeks), - driving or machine use limit: (none for 1 week or until pain free and no longer taking narcotic pain medication), - Shower/bathe limit: (march shower beginning ) Diet: - Resume previous diet SPECIAL CARE INSTRUCTIONS: - May shower on , sponge bath and was hair in meantime. On , can remove outer dressings and shower. Let water run over area and pat dry. - Leave steri strips on for one week and then remove - Keep record of drain output (amount and color) , bring record with you to office. Call office if there is a significant change in color or amount. Drain will be removed in office. - Call the surgeon's office with any questions or concerns - - (ex. temperature higher than 101 degrees F, excessive bleeding or pain). MEDICATIONS: - Resume previous medications unless instructed otherwise by your surgeon. - May take extra strength Tylenol as needed for mild to moderate pain. - Percocet 1 every 6 hours, as needed for severe pain - Recommend daily stool softener (Colace) while taking narcotic pain medication to avoid straining or constipation. Drink plenty of water daily. - Take antibiotics as prescribed for 7 days FOLLOW UP VISIT: - If not already scheduled, please call the office to schedule a one week follow-up appointment. Office number Pending Studies at Discharge: Yes (gallbladder pathology, will be reviewed at postop visit) Stand-Alone Forms: My [facility], Smoking Cessation Medications and DC Order Prescriptions: New ciprofloxacin HCl 500 mg tablet 500 mg PO BID Qty: 14 0RF metronidazole 500 mg tablet 500 mg PO TID Qty: 21 0RF oxycodone-acetaminophen [Percocet] 5-325 mg tablet 1 tab PO Q6H PRN (Reason: pain) Qty: 10 0RF Continued pantoprazole 40 mg Tablet,Delayed Release (Dr/Ec) 40 mg PO DAILY Discharge Orders: Discharge Order (Routine); Ordered 12/07/22 Ordered By: Yue Hernández/Other Patient Handouts: Cholecystectomy Dc, Tyrone Lauren Drain Tube Dc, Taking Opioid Medicines Admission Data Admit Date/Time: 12/05/22 17:26 Attending Provider: Rod Christy Admit Provider: Deirdre Stout Primary Care Provider: Missy Yoon Other Providers: Nadia Abdul Other Interventions: Discharge Summary Assessment (RN) Last Done: 12/07/22 11:34 Supervising Physician Co-Signing Physician Notes Patient is seen and examined at bedside. Denies any significant abdominal pain at surgical site. Tolerating diet. Denies any nausea, vomiting, dizziness, chest pain, dyspnea. On exam patient is obese, no apparent distress, normocephalic atraumatic, EOMI, normal bowel sounds, clear to auscultation, S1- S2, no murmur, no pedal edema, abdomen soft, protuberant,+ surgical scars, drain, mild tenderness at surgical site, bowel sounds present, alert, awake, oriented, grossly no focal deficits. Patient is admitted for management of biliary colic S/P laparoscopic cholecystectomy. Advance diet as tolerated. Pain control. Continue antibiotics as per surgery. Appreciate surgery input. Advised to follow-up with PCP, surgery upon discharge. I personally reviewed the record. Patient is interviewed and examined at bedside. Patient's care is coordinated with Yue Neumann NP. Please refer to the documentation above for details of patient's presentation and for discussion of other issues.
== END 2022-12-07 12:17 | disposition home or self-care (01) | DRG 419 ==
LOC: INTOOBSV 17:26 → SUATTDRO 17:26 → 3N 17:26